=== PATIENT | male | born 1945 | race Caucasian/White ===

== ENCOUNTER → 2023-04-09 13:36 | Outpatient (CLI) | payer MEDICARE, OTHER, SELFPAY ==
--- NOTE | 2023-04-09 13:56 | DI.MRI.S_ITS ---
PROCEDURE: MR LUMBAR SPINE WO CON INDICATIONS: lower lumbar pain TECHNIQUE: Noncontrast sagittal T1 spin echo and T2 fast echo, sagittal STIR, and T2 fast spin echo through the lumbar spine. In cases with scoliosis, additional coronal T2 fast spin echo may be performed. COMPARISON: None. FINDINGS: Image quality: Excellent. Alignment and Curvature: There is normal bony alignment. Bone Marrow: Degenerative endplate changes noted. Spinal Cord: Conus terminates at the L1 level. Lipoma involving the proximal filum measuring 1.4 cm in length and 0.6 cm in diameter. Fatty infiltration of the remainder of the filum terminalis is noted as well. Paraspinous Soft Tissues: No paravertebral masses. T12-L1: Normal appearance. L1-L2: Mild disc space narrowing and circumferential disc bulge with hypertrophic facet joints present. Mild central stenosis. No foraminal stenosis L2-L3: Disc space narrowing with circumferential disc bulge and hypertrophic facet joints results in mild central stenosis. No foraminal stenosis L3-L4: Disc space narrowing and circumferential disc bulge with hypertrophic facet joints results in mhyv-ax-saabyeog central stenosis. Moderate bilateral foraminal stenosis L4-L5: Disc space narrowing, hypertrophic facet joints and ligamentum flavum laxity combined result in mild to moderate central stenosis. Moderate bilateral foraminal stenosis L5-S1: Normal appearance. IMPRESSION: Multilevel degenerative disc disease and arthropathy results in varying degrees of central and foraminal stenosis including mild to moderate central stenosis L3-4 and L4-5. 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 on 04/11/2023 at 11:54
== END ==
PROVIDERS: Referring Provider Physical Medicine & Rehabilitation; Visit Provider Physical Medicine & Rehabilitation
DX: M51.36 Other intervertebral disc degeneration, lumbar region (principal); M47.816 Spondylosis without myelopathy or radiculopathy, lumbar region; M48.061 Spinal stenosis, lumbar region without neurogenic claudication; D17.79 Benign lipomatous neoplasm of other sites; M54.50 Low back pain, unspecified
CPT/HCPCS: 72148

== ENCOUNTER 2024-01-08 12:33 | Emergency (ER) | payer MEDICARE, OTHER, SELFPAY ==
[2024-01-08] VITALS (7 sets, daily range): BP systolic 139–194; BP diastolic 72–101; PULSE 62–82; RESP 16–22; O2SAT 95–99; BMI 32.6
--- NOTE | 2024-01-08 12:40 | DI.CT.S_ITS ---
PROCEDURE: CT HEAD/BRAIN WO CON INDICATIONS: fall on thinners, + C spine tenderness TECHNIQUE: Noncontrast 4.5 mm thick angled axial sections acquired from the foramen magnum to the vertex, with coronal and sagittal reformats. For radiation dose reduction, the following was used: automated exposure control, adjustment of mA and/or kV according to patient size. COMPARISON: None. FINDINGS: Image quality: Diagnostic. CSF spaces: Basal cisterns are patent. No extra-axial fluid collections. Ventricles are normal in size and shape. Brain: No midline shift. No intracranial masses or hemorrhage. Cardenas-white matter interface is normal. Moderate cerebral and cerebellar volume loss with multifocal white matter chronic ischemic change noted. Atherosclerotic calcification noted associated with cavernous segments of both internal carotid arteries. Skull and face: Calvarium and visualized facial bones are intact, without suspicious lesions. Sinuses: Left frontal, bilateral ethmoid and maxillary as well as both sphenoid sinuses show complete opacification with osseous wall thickening IMPRESSION: Atrophy and chronic ischemic change without intracranial hemorrhage or mass effect. Chronic pansinusitis Approved by: Nam Brothers M.D. on 01/08/2024 at 12:54
--- NOTE | 2024-01-08 12:40 | DI.CT.S_ITS ---
PROCEDURE: CT CERVICAL SPINE WO CON INDICATIONS: fall on thinners, + C spine tenderness TECHNIQUE: Noncontrast 3 mm thick sections acquired from the skull base to the T4 level. Sagittal and coronal reformats were then constructed. For radiation dose reduction, the following was used: automated exposure control, adjustment of mA and/or kV according to patient size. COMPARISON: [facility] [place], CR, XR LUMBAR SPINE 2 OR 3 VIEWS, 04/04/2023, 13:32. [facility] [place], CR, XR PELVIS 1 OR 2 VIEWS, 11/25/2021, 10:20. [facility] [place], CR, XR PELVIS WITH LATERAL HIP RIGHT, 03/09/2023, 14:59. FINDINGS: Image quality: Excellent. Bones: No fractures or dislocations. Visualized superior ribs are intact. There is ossification of the posterior longitudinal ligament extending from C2 through C5-6 resulting in straightening of the normal cervical lordosis as well as moderate to severe central stenosis and indentation of the ventral cord at C3-4 and C4-5 Disc space narrowing and hypertrophic arthropathy C6-7 and C7-T1 Additionally, there is also a calcification of the anterior longitudinal ligament throughout the exam Soft tissues: Prevertebral soft tissues are normal in thickness. No paravertebral hematomas. No apical pneumothoraces. 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 Calcification of anterior longitudinal ligament noted throughout the cervical spine as as well may reflect an element of ankylosing spondylitis in the proper clinical setting Approved by: Nam Brothers M.D. on 01/08/2024 at 12:51
--- NOTE | 2024-01-08 12:57 | ED_ITS ---
HPI - Head Injury General Chief complaint: Trauma Stated complaint: Fall t-1, Hit Head, On Thinners, Neck Pain Time Seen by Provider: 01/08/24 12:47 Source: patient and family Mode of arrival: Ambulatory History of Present Illness HPI Narrative: 78-year-old male with history of chronic Eliquis anticoagulation, tripped over house cat in their bedroom last night, falling backwards striking head against the wall, apparently there was indentation to the wall, no loss of consciousness, no headache, no weakness to face arm or leg, no nausea or vomiting. Some posterior neck pain, worse this morning. Encouraged by son to come in for evaluation for possible imaging. He has chronic low back pain but there is no increase in his low back pain. No pain to upper extremities, lower extremities. Related Data Home Medications Medication Instructions Recorded Confirmed apixaban 5 mg tablet (Eliquis) 5 mg PO BID 01/08/24 01/08/24 diltiazem HCl 120 mg 120 mg PO DAILY 01/08/24 01/08/24 capsule,extended release 24 hr hydrochlorothiazide 25 mg tablet 25 mg PO DAILY 01/08/24 01/08/24 potassium chloride 20 mEq 20 meq PO DAILY 01/08/24 01/08/24 tablet,extended release(part/cryst) terbinafine HCl 250 mg tablet 250 mg PO DAILY 01/08/24 01/08/24 Previous Rx's Medication Instructions Recorded methocarbamol 500 mg tablet 500 mg PO TID 7 days #21 tabs 01/08/24 Allergies Allergy/AdvReac Type Severity Reaction Status Date / Time Iodinated Contrast Media Allergy Severe Anaphylaxis Verified 01/08/24 14:07 Review of Systems Review of Systems Narrative: see HPI Patient History Social History Smoking Status: Former smoker Smoking Status: Former smoker Substance Use Type: does not use Exam Narrative Exam Narrative: GENERAL: Well-developed patient, in mild distress. HEAD: Atraumatic. Normocephalic. EYES: Pupils equal round and reactive. Extraocular motions intact. No scleral icterus. No injection or drainage. ENT: Nose without bleeding, purulent drainage. Throat without erythema, tonsillar hypertrophy or exudate. Airway patent. NECK: Trachea midline. Non tender CARDIOVASCULAR: Regular rate and rhythm without murmurs, gallops, or rubs. RESPIRATORY: Clear to auscultation. Breath sounds equal bilaterally. No wheezes, rales, or rhonchi. GASTROINTESTINAL: Abdomen soft, non-tender, nondistended. EXTREMITIES: No edema or joint tenderness. BACK: Nontender without deformity or crepitance. No flank tenderness. NEURO: AOx3. SKIN: No rash or erythema of visible areas Initial Vital Signs Initial Vital Signs: Vital Signs Pulse Rate 78 01/08/24 12:40 Pulse Oximetry 98 01/08/24 12:40 Course Orders Ordered: ED Orders 01/08/24 12:40 CT cervical spine wo con Stat CT head/brain wo con Stat Discontinued Medications Acetaminophen (Acetaminophen 325 Mg Tablet) 975 mg PO NOW ONE Stop: 01/08/24 14:08 Last Admin: 01/08/24 14:21 Dose: 975 mg Documented By: GLENYS Methocarbamol (Methocarbamol 500 Mg Tablet) 500 mg PO NOW ONE Stop: 01/08/24 14:08 Last Admin: 01/08/24 14:22 Dose: 500 mg Documented By: GLENYS Vital Signs Vital signs: Vital Signs - 8 hr 01/08/24 12:40 01/08/24 12:41 01/08/24 12:43 Pulse Rate 78 82 72 Respiratory Rate 18 Blood Pressure 150/101 H Pulse Oximetry 98 99 97 Oxygen Delivery Method Room Air 01/08/24 12:43 01/08/24 13:00 01/08/24 13:00 Pulse Rate 71 Respiratory Rate 22 Blood Pressure 150/101 H 194/91 H Pulse Oximetry 98 Oxygen Delivery Method 01/08/24 13:30 01/08/24 13:31 01/08/24 13:31 Pulse Rate 62 71 Respiratory Rate 16 19 Blood Pressure 139/72 Pulse Oximetry 96 96 Oxygen Delivery Method 01/08/24 14:00 01/08/24 14:00 Pulse Rate 66 Respiratory Rate 16 Blood Pressure 143/73 H Pulse Oximetry 95 Oxygen Delivery Method Room Air MDM - Head Injury Imaging Data CT scan - head: Radiologist's Impression: [address] [address] [address] Scan Report Signed Patient: Sarmad Alejo MR#: [id number] : 1945 Acct:[id number] Age/Sex: 78 / M Date of Service: 01/08/24 Loc: ED Accession Number: [id number] Procedure: CT head/brain wo con Ordering Provider: Brad Norman MD PROCEDURE: CT HEAD/BRAIN WO CON INDICATIONS: fall on thinners, + C spine tenderness TECHNIQUE: Noncontrast 4.5 mm thick angled axial sections acquired from the foramen magnum to the vertex, with coronal and sagittal reformats. For radiation dose reduction, the following was used: automated exposure control, adjustment of mA and/or kV according to patient size. COMPARISON: None. FINDINGS: Image quality: Diagnostic. CSF spaces: Basal cisterns are patent. No extra-axial fluid collections. Ventricles are normal in size and shape. Brain: No midline shift. No intracranial masses or hemorrhage. Cardenas-white matter interface is normal. Moderate cerebral and cerebellar volume loss with multifocal white matter chronic ischemic change noted. Atherosclerotic calcification noted associated with cavernous segments of both internal carotid arteries. Skull and face: Calvarium and visualized facial bones are intact, without suspicious lesions. Sinuses: Left frontal, bilateral ethmoid and maxillary as well as both sphenoid sinuses show complete opacification with osseous wall thickening IMPRESSION: Atrophy and chronic ischemic change without intracranial hemorrhage or mass effect. Chronic pansinusitis Approved by: Nam Brothers M.D. on 01/08/2024 at 12:54 CT - cervical spine: Radiologist's Impression: [place] [address] CT Scan Report Signed Patient: Sarmad Alejo MR#: [id number] : 1945 Acct:[id number] Age/Sex: 78 / M Date of Service: 01/08/24 Loc: ED Accession Number: [id number] Procedure: CT cervical spine wo con Ordering Provider: Brad Norman MD PROCEDURE: CT CERVICAL SPINE WO CON INDICATIONS: fall on thinners, + C spine tenderness TECHNIQUE: Noncontrast 3 mm thick sections acquired from the skull base to the T4 level. Sagittal and coronal reformats were then constructed. For radiation dose reduction, the following was used: automated exposure control, adjustment of mA and/or kV according to patient size. COMPARISON: [facility] [place], CR, XR LUMBAR SPINE 2 OR 3 VIEWS, 04/04/2023, 13:32. [facility] [place], CR, XR PELVIS 1 OR 2 VIEWS, 11/25/2021, 10:20. [facility] [place], CR, XR PELVIS WITH LATERAL HIP RIGHT, 03/09/2023, 14:59. FINDINGS: Image quality: Excellent. Bones: No fractures or dislocations. Visualized superior ribs are intact. There is ossification of the posterior longitudinal ligament extending from C2 through C5-6 resulting in straightening of the normal cervical lordosis as well as moderate to severe central stenosis and indentation of the ventral cord at C3-4 and C4-5 Disc space narrowing and hypertrophic arthropathy C6-7 and C7-T1 Additionally, there is also a calcification of the anterior longitudinal ligament throughout the exam Soft tissues: Prevertebral soft tissues are normal in thickness. No paravertebral hematomas. No apical pneumothoraces. 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 Calcification of anterior longitudinal ligament noted throughout the cervical spine as as well may reflect an element of ankylosing spondylitis in the proper clinical setting Approved by: Nam Brothers M.D. on 01/08/2024 at 12:51 MDM Narrative Medical decision making narrative: 78-year-old male with ground level fall, on Eliquis chronic anticoagulation, denies headache but here for imaging per urging of family members, also has posterior neck pain. Placed in C-collar at triage. CT head and CT cervical sp ine imaging had been requested. Pain medications offered, he declined for now. CT head without obvious brain injury, ED wet read. Await radiologist over-read. Copy of report given to patient CT head no acute injuries, see radiology report. CT cervical spine no acute injuries, but moderate to severe central canal stenosis C3-4 and C4-5 noted. See radiology report. Copy of report given to patient Continue chronic anticoagulation, trial of oral Tylenol as needed for discomfort control, trial of Robaxin muscle relaxant to use if needed, 1st dose now, further doses sent to pharmacy. Home with . Recheck advised next couple of days. Cervical spin out stenosis findings noted, no upper or lower extremity weakness or numbness symptoms present, no physical exam findings for central co rd syndrome at this time. Discharge Plan Departure Patient Disposition: Home Clinical Impression: Fall from ground level, Neck strain Activity Restrictions/Additional Instructions: History of chronic anticoagulation. Fall last night striking back of head, with no loss of consciousness. No weakness or numbness face arms or legs. Also some posterior neck pain. CT head imaging showed no acute changes. CT cervical spine showed no acute changes but did show multilevel spinal canal narrowing, that could place you at increased risk of future spinal cord injury with falls, further follow up as needed as an outpatient. Avoid Motrin while on Eliquis, to avoid risks of bleeding in the stomach. Take Tylenol as needed for pain control. Consider use of muscle relaxant Robaxin to help with muscle spasm in the back of the neck from your fall. Recheck symptoms with your regular doctor in the next couple of days. Return to this/nearest emergency department for any change worsening symptoms or any concerns prior Prescriptions: New methocarbamol 500 mg tablet 500 mg PO TID 7 Days Qty: 21 0RF No Action terbinafine HCl 250 mg tablet 250 mg PO DAILY potassium chloride 20 mEq tablet,ER particles/crystals 20 meq PO DAILY diltiazem HCl 120 mg capsule,extended release 24hr 120 mg PO DAILY hydrochlorothiazide 25 mg tablet 25 mg PO DAILY Eliquis 5 mg tablet 5 mg PO BID Stand Alone Forms: Patient Portal/API
[2024-01-08] MEDS: ACETAMINOPHEN 325 MG TABLET 975 MG PO (14:21)
[2024-01-08] MEDS: methocarbamoL 500 MG TABLET PO (14:22)
== END 2024-01-08 14:34 | disposition home or self-care (01) ==
PROVIDERS: Emergency Provider Emergency Medicine
DX: S16.1XXA Strain of muscle, fascia and tendon at neck level, initial encounter (principal); W18.30XA Fall on same level, unspecified, initial encounter; Z79.01 Long term (current) use of anticoagulants
CPT/HCPCS: 70450; 72125; 99284

== ENCOUNTER 2025-04-12 16:09 | Emergency (ER) | payer MEDICARE, OTHER, SELFPAY ==
[2025-04-12] VITALS (22 sets, daily range): BP systolic 109–186; BP diastolic 55–102; PULSE 42–64; RESP 12–21; TEMP 36.8; O2SAT 94–100; BMI 32.2
--- NOTE | 2025-04-12 16:41 | DI.RAD.S_ITS ---
PROCEDURE: XR SHOULDER RT MIN 2V INDICATIONS: trauma TECHNIQUE: 3 views of the shoulder were acquired. COMPARISON: None. FINDINGS: Bones: No acute fractures or dislocations. No suspicious bony lesions. Visualized ribs appear intact. Degenerative changes of the acromioclavicular and glenohumeral joints. Soft tissues: No suspicious soft tissue calcifications. IMPRESSION: Right shoulder without acute fracture or dislocation. Degenerative changes of the right acromioclavicular and glenohumeral joints. If there are persistent symptoms or clinical suspicion for pathology, then repeat radiographs or advanced imaging (CT or MRI) may be considered for further evaluation. Dictated by: Jeferson Celeste M.D. on 04/12/2025 at 17:18 Approved by: Jeferson Celeste M.D. on 04/12/2025 at 17:18
--- NOTE | 2025-04-12 16:41 | DI.RAD.S_ITS ---
PROCEDURE: XR SHOULDER LT MIN 2V INDICATIONS: trauma TECHNIQUE: 3 views of the shoulder were acquired. COMPARISON: None. FINDINGS: Bones: No fractures or dislocations. No suspicious bony lesions. Visualized ribs appear intact. Degenerative changes of the acromioclavicular and glenohumeral joints. Coracoclavicular and acromioclavicular intervals are maintained. Soft tissues: No suspicious soft tissue calcifications. IMPRESSION: Left shoulder without acute osseous abnormalities. Degenerative changes of the left shoulder. If there are persistent symptoms or clinical suspicion for pathology, then repeat radiographs or advanced imaging (CT or MRI) may be considered for further evaluation. Dictated by: Jeferson Celeste M.D. on 04/12/2025 at 17:19 Approved by: Jeferson Celeste M.D. on 04/12/2025 at 17:19
--- NOTE | 2025-04-12 16:42 | DI.RAD.S_ITS ---
PROCEDURE: XR CHEST 1V INDICATIONS: trauma TECHNIQUE: One view of the chest was acquired. COMPARISON: None. FINDINGS: Surgical changes and devices: None. Lungs and pleura: Minimal diffuse interstitial prominence. No dense consolidation. No pleural effusions or pneumothorax. Mediastinum: Mediastinal contours appear normal. Heart size is normal. Bones and chest wall: No suspicious bony lesions. Overlying soft tissues appear unremarkable. IMPRESSION: Mild diffuse interstitial prominence which may represent infectious/inflammatory process although early pulmonary edema not excluded. Otherwise, no acute cardiopulmonary abnormality seen. Dictated by: Jeferson Celeste M.D. on 04/12/2025 at 17:20 Approved by: Jeferson Celeste M.D. on 04/12/2025 at 17:21
--- NOTE | 2025-04-12 16:42 | DI.RAD.S_ITS ---
PROCEDURE: XR PELVIS 1-2V INDICATIONS: trauma TECHNIQUE: 1 view(s) of the pelvis acquired. COMPARISON: None. FINDINGS: Bones: No definite acute fractures or dislocations. Moderate degenerative changes of the bilateral hips, more pronounced on the right. Lower lumbar spondylosis. No suspicious bony lesions. Soft tissues: Visualized bowel gas pattern is normal. No suspicious soft tissue calcifications. IMPRESSION: Pelvis without acute fracture or dislocation. Right greater than left moderate degenerative changes of the bilateral hips. If there is high clinical suspicion for occult fracture given adequate mechanism of injury, further evaluation with CT can be considered. Dictated by: Jeferson Celeste M.D. on 04/12/2025 at 18:51 Approved by: Jeferson Celeste M.D. on 04/12/2025 at 18:52
--- NOTE | 2025-04-12 16:43 | DI.CT.S_ITS ---
PROCEDURE: CT HEAD/BRAIN WO CON INDICATIONS: Trauma TECHNIQUE: Noncontrast 4.5 mm thick angled axial sections acquired from the foramen magnum to the vertex, with coronal and sagittal reformats. For radiation dose reduction, the following was used: automated exposure control, adjustment of mA and/or kV according to patient size. COMPARISON: [facility], CT, CT HEAD/BRAIN WO CON, 01/08/2024, 12:43. FINDINGS: Image quality: Diagnostic. CSF spaces: Basal cisterns are patent. No extra-axial fluid collections. The ventricles are symmetric in size and shape. Brain: No intracranial bleeds or mass effect. There is cerebral volume loss, with resultant ventricular and sulcal prominence. There are periventricular and deep white matter chronic small vessel ischemic changes. There is intracranial internal carotid artery atherosclerosis. Skull and face: Calvarium and visualized facial bones appear intact, without suspicious lesions. Sinuses: Redemonstration of moderate opacification of the left frontal, scattered ethmoid, sphenoid, and bilateral maxillary sinuses. Mastoid air cells are clear. IMPRESSION: 1. CT head without acute intracranial abnormalities or acute calvarial fractures. 2. Age-related senescent changes and sequela of chronic small vessel ischemic disease. 3. Pansinusitis. Dictated by: Jeferson Celeste M.D. on 04/12/2025 at 17:45 Approved by: Jeferson Celeste M.D. on 04/12/2025 at 17:48
--- NOTE | 2025-04-12 16:43 | DI.CT.S_ITS ---
PROCEDURE: CT CERVICAL SPINE WO CON INDICATIONS: Trauma TECHNIQUE: Noncontrast 3 mm thick sections acquired from the skull base to the T4 level. Sagittal and coronal reformats were then constructed. For radiation dose reduction, the following was used: automated exposure control, adjustment of mA and/or kV according to patient size. COMPARISON: [facility], CT, CT CERVICAL SPINE WO CON, 01/08/2024, 12:43. FINDINGS: Image quality: Diagnostic Bones: No acute fractures or dislocations. No acute compression fractures of the vertebral bodies. Craniocervical junction is intact. C1-C2 relationship is preserved. Visualized superior ribs are intact. Moderate multilevel cervical spondylosis. Redemonstration of calcified posterior longitudinal ligament extending from C2 through C6. Associated straightening of normal cervical lordosis. There is possible fracture of the calcified posterior longitudinal ligament at C3-4 with mild asymmetric widening of the anterior longitudinal ligament, also calcified at C3-4. Mild overlying soft tissue swelling of the prevertebral soft tissues at this level. No significant change in appearance of moderate-severe central canal stenosis of C3 through C5-6. Soft tissues: Prevertebral soft tissues are normal in thickness. No paravertebral hematomas. No apical pneumothoraces. IMPRESSION: CT cervical spine with no acute compression fractures or traumatic malalignment of the cervical spine. However, calcified anterior and posterior longitudinal ligaments demonstrate possible age-indeterminate discontinuity at the level of C3-4, more pronounced than previous exam. Mild anterior prevertebral soft tissue prominence at this level. Otherwise, no significant change in appearance of moderate-severe spinal canal stenosis extending from C3 through C5-6. If there are focal neurological symptoms, consider further evaluation with MRI. Stable appearance of moderate multilevel cervical spondylosis. Findings were discussed with Dr. Torres at 1757 hrs. Dictated by: Jeferson Celeste M.D. on 04/12/2025 at 17:48 Approved by: Jeferson Celeste M.D. on 04/12/2025 at 18:02
--- NOTE | 2025-04-12 16:45 | DI.RAD.S_ITS ---
PROCEDURE: XR KNEE RT 3V INDICATIONS: trauma TECHNIQUE: 3 views of the knee were acquired. COMPARISON: None. FINDINGS: Bones: No fractures or dislocations. No suspicious bony lesions. Moderate joint space narrowing and osteophytosis of the patellofemoral compartment, mild in the medial and lateral compartment. Patella enthesophytes. Soft tissues: No joint effusion. No suspicious soft tissue calcifications. Vascular calcifications. IMPRESSION: No acute bony abnormality or significant effusion. 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 If symptoms persist with conservative management, consider cross-sectional imaging such as CT or MRI. Approved by: Maria Guadalupe Ortiz M.D.,Ph.D. on 04/12/2025 at 21:03
--- NOTE | 2025-04-12 16:45 | DI.RAD.S_ITS ---
PROCEDURE: XR KNEE LT 3V INDICATIONS: trauma TECHNIQUE: 3 views of the knee were acquired. COMPARISON: None. FINDINGS: Bones: Status post total knee arthroplasty with prosthetic elements in appropriate position. No evidence of hardware complication. Ossific densities at the lateral aspect of the joint space favored to represent sequela of surgery versus prior trauma, less likely acute fractures. No suspicious bony lesions. Patellar enthesophytes. Soft tissues: Small joint effusion. No suspicious soft tissue calcifications. Vascular calcifications. IMPRESSION: Status post total knee arthroplasty without evidence of hardware complication. No definite acute fracture identified. If symptoms persist with conservative management, consider cross-sectional imaging such as CT or MRI. Approved by: Maria Guadalupe Ortiz M.D.,Ph.D. on 04/12/2025 at 20:35
--- NOTE | 2025-04-12 17:40 | EKG_ITS ---
[address] [address] Test Date: 2025-04-12 Pat Name: Sarmad Alejo Department: [facility] Room: Gender: Male Court Reporter: PATTIE : 1945 Requested By: Order Number: [id number] Reading MD: Carloz John MD Measurements Intervals [place] Rate: 49 P: IA: QRS: 45 QRSD: 96 T: 40 QT: 518 QTc: 467 Interpretive Statements Atrial fibrillation with slow ventricular response NO PRIOR TRACING Electronically Signed On 04-13-2025 9:28:21 PST by Carloz John MD
[2025-04-12 17:49] LABS: Add Manual Diff / Slide Review NO; Hematocrit 43.8 % (41-53); Hemoglobin 14.9 g/dL (13.5-17.5); Lymphocytes Absolute Auto 1400 /uL (1100-4500); Mean Corpuscular HGB Conc 34.0 % (30-36); Mean Corpuscular Hemoglobin 31.4 PG (26-34); Mean Corpuscular Volume 92.2 fL (80-100); Platelet Count 221 X10^3/uL (150-400)
[2025-04-12 17:58] LABS: INR 1.7 (0.9-1.3); Prothrombin Time 18.9 SECONDS (9.4-12.5)
[2025-04-12 18:01] LABS: PTT Partial Thromboplastin Tim 40 SECONDS (25.1-36.5)
[2025-04-12 18:02] LABS: Lactate (Lactic Acid) 2.0 mmol/L (0.7-2.1)
[2025-04-12 18:03] LABS: Alanine Aminotransferase 21 IU/L (<50); Albumin 4.4 g/dL (3.5-5.0); Albumin Globulin Ratio 1.1 (1.0-2.8); Alkaline Phosphatase 103 U/L (38-126); Blood Urea Nitrogen 16 mg/dL (9-20); Calcium 9.1 mg/dL (8.4-10.2); Carbon Dioxide 27 mmol/L (22-32); Chloride 99 mmol/L (98-107); Estimated Glomerular Filt Rate > 60 mL/min (>60); Globulin 4.1 g/dL (1.7-4.1); Glucose 121 mg/dL (70-99); HEMOLYSIS 22 (0-50); Lipase 40 U/L (23-300); Potassium 4.0 mmol/L (3.4-5.1); Sodium 135 mmol/L (137-145); Total Protein 8.5 g/dL (6.3-8.2)
[2025-04-12] MEDS: ONDANSETRON 4 MG/2 ML INJ IV (19:20)
--- NOTE | 2025-04-12 19:35 | PC.NURSE ---
Discussed c-spine results with Dr. Torres. Pt's c-spine is not cleared at this time and soft collar not to be removed.
--- NOTE | 2025-04-12 19:37 | PC.NURSE ---
Hand off report received from Katalina Esquivel RN
--- NOTE | 2025-04-12 19:51 | ED.GENADULT ---
HPI - General Adult General Chief complaint: Trauma Stated complaint: GLF Time Seen by Provider: 04/12/25 16:18 Source: patient and EMS Mode of arrival: EMS History of Present Illness HPI narrative: 79-year-old gentleman with a history of chronic atrial fibrillation, anticoagulated on apixaban rate controlled with diltiazem, tripped going into the house today fell forward with significant impact on his chin and forehead others contusions on his knees he states that he was holding something and was not able to break his fall. He is complaining of severe pain into both upper extremities with weakness into both upper extremities. He is not complaining of any abdominal pain pelvic pain leg pain nor leg weakness or paresthesia. He has a hoarse collar in place. Standby trauma is called. GCS of 15 Related Data Home Medications ?Medication ?Instructions ?Recorded ?Confirmed apixaban 5 mg tablet (Eliquis) 5 mg PO BID 01/08/24 01/08/24 diltiazem HCl 120 mg 120 mg PO DAILY 01/08/24 01/08/24 capsule,extended release 24 hr hydrochlorothiazide 25 mg tablet 25 mg PO DAILY 01/08/24 01/08/24 potassium chloride 20 mEq 20 meq PO DAILY 01/08/24 01/08/24 tablet,extended release(part/cryst) terbinafine HCl 250 mg tablet 250 mg PO DAILY 01/08/24 01/08/24 Allergies Allergy/AdvReac Type Severity Reaction Status Date / Time Iodinated Contrast Media Allergy Severe Anaphylaxis Verified 04/12/25 16:19 Review of Systems Review of Systems Narrative: Pertinent positive and negative findings as per HPI Patient History Medical History (Updated 04/12/25 @ 21:12 by Sara Torres MD) AF (paroxysmal atrial fibrillation) Smoking Status: Former smoker Exam Initial Vital Signs Initial Vital Signs: Vital Signs Pulse Rate 56 L 04/12/25 16:14 Pulse Oximetry 98 04/12/25 16:14 General: Healthy appearing, in no acute distress. Able to give a complete and coherent history. Well-nourished well-developed HEENT: Moist mucous membranes, normal sclera with reactive pupils, minor abrasion on the chin in the forehead. Neck: Midline tenderness C2-3 4. Shoulders: Significant trapezius muscle spasm tenderness, exquisite pain even touching the skin over his shoulders. No obvious effusions, abrasions or contusions. He does not have tenderness over the clavicles. He is able to flex and extend both arms but complains of a tingling sensation down the back of both arms. No obvious weakness in the upper extremities Respiratory: Lungs are clear to auscultation, no wheezing no rales no rhonchi. Full and symmetrical air movement. No thoracic tenderness with compression Cardiac: Regular rate and rhythm no murmurs no bruits Abdomen: Soft, nontender, no rebound or guarding, no flank pain, no pelvic ring pain with compression Spine: No tenderness down the thoracic spine or into the lumbar spine or sacrum Skin: Minor abrasions over his knees Neurologic: He is able to move legs without obvious weakness. He does not complain of any paresthesias in the lower extremities Psych: Cooperative, appropriate insight and affect Course Orders Ordered: ED Orders 04/12/25 16:41 XR shoulder LT 2+ views Stat XR shoulder RT 2+ views Stat 04/12/25 16:42 XR chest 1V Stat XR pelvis 1-2V Stat EKG-12 Lead Stat 04/12/25 16:43 CT cervical spine wo con Stat CT head/brain wo con Stat 04/12/25 16:45 XR knee LT 3V Stat XR knee RT 3V Stat 04/12/25 17:25 Complete Blood Count AUTO DIFF Stat Comprehensive Metabolic Panel Stat Lactate (Lactic Acid) Stat Lipase Stat PTT Partial Thromboplastin Gutierrez Stat Prothrombin Time INR Stat Type and Screen Stat Discontinued Medications Hydromorphone HCl (Hydromorphone Hcl 0.5 Mg/0.5 Ml Syringe) 0.5 mg IV NOW ONE Stop: 04/12/25 16:26 Last Admin: 04/12/25 16:28 Dose: 0.5 mg Documented By: RB Hydromorphone HCl (Hydromorphone 1 Mg/Ml Syringe) 0.5 mg IV NOW ONE Stop: 04/12/25 16:42 Last Admin: 04/12/25 19:21 Dose: 0.5 mg Documented By: RB Ondansetron HCl (Ondansetron 4 Mg/2 Ml Inj) 4 mg IV NOW ONE Stop: 04/12/25 16:42 Last Admin: 04/12/25 19:20 Dose: 4 mg Documented By: RB Vital Signs Vital signs: Vital Signs - 8 hr 04/12/25 16:14 04/12/25 16:17 04/12/25 16:17 Temperature Pulse Rate 56 L 55 L Respiratory Rate Blood Pressure 137/68 Pulse Oximetry 98 100 Oxygen Delivery Method 04/12/25 16:19 04/12/25 16:31 04/12/25 16:32 Temperature 98.2 F Pulse Rate 63 50 L Respiratory Rate 18 Blood Pressure 139/65 Pulse Oximetry 97 98 99 Oxygen Delivery Method Room Air 04/12/25 16:32 04/12/25 17:14 04/12/25 17:30 Temperature Pulse Rate 42 L 44 L Respiratory Rate Blood Pressure 139/65 Pulse Oximetry 98 98 Oxygen Delivery Method 04/12/25 17:45 04/12/25 17:45 04/12/25 18:00 Temperature Pulse Rate 43 L 45 L Respiratory Rate 12 19 Blood Pressure 109/55 L Pulse Oximetry 98 98 Oxygen Delivery Method 04/12/25 18:00 04/12/25 18:30 04/12/25 18:30 Temperature Pulse Rate 52 L Respiratory Rate 18 Blood Pressure 112/56 L 130/61 Pulse Oximetry 97 Oxygen Delivery Method 04/12/25 19:00 04/12/25 19:01 04/12/25 19:01 Temperature Pulse Rate 52 L 54 L Respiratory Rate 18 17 Blood Pressure 140/64 Pulse Oximetry 96 97 Oxygen Delivery Method 04/12/25 19:30 04/12/25 19:31 04/12/25 19:31 Temperature Pulse Rate 55 L 55 L Respiratory Rate 16 15 Blood Pressure 128/64 Pulse Oximetry 94 95 Oxygen Delivery Method Medical Decision Making Lab Data 04/12/25 17:25 04/12/25 17:25 Labs: Lab Results 04/12/25 Range/Units 17:25 WBC 10.8 (4.5-11.0) X10^3/uL RBC 4.75 (4.5-5.9) X10^6/uL Hgb 14.9 (13.5-17.5) g/dL Hct 43.8 (41-53) % MCV 92.2 (80-100) fL MCH 31.4 (26-34) PG MCHC 34.0 (30-36) % RDW 14.5 (11.6-14.8) % Plt Count 221 (150-400) X10^3/uL Neut % (Auto) 77.8 H (50-75) % Lymph % (Auto) 13.0 L (25-40) % [place] % (Auto) 7.0 (3-14) % Eos % (Auto) 1.9 L (2-4) % Baso % (Auto) 0.3 (0-2) % Neut # (Auto) 8400 H (0969-8343) /uL Lymph # (Auto) 1400 (9554-1722) /uL [place] # (Auto) 800 (0-900) /uL Eos # (Auto) 200 (0-450) /uL Baso # (Auto) 0 (0-100) /uL PT 18.9 H (9.4-12.5) SECONDS INR 1.7 H (0.9-1.3) APTT 40 H (25.1-36.5) SECONDS Sodium 135 L (137-145) mmol/L Potassium 4.0 (3.4-5.1) mmol/L Chloride 99 (98-107) mmol/L Carbon Dioxide 27 (22-32) mmol/L BUN 16 (9-20) mg/dL Creatinine 0.92 (0.66-1.25) mg/dL Estimated GFR > 60 (>60) mL/min BUN/Creatinine Ratio 17.4 (6-22) Glucose 121 H (70-99) mg/dL Lactate 2.0 (0.7-2.1) mmol/L Calcium 9.1 (8.4-10.2) mg/dL Total Bilirubin 0.6 (0.2-1.3) mg/dL AST 29 (17-59) IU/L ALT 21 (<50) IU/L Alkaline Phosphatase 103 (38-126) U/L Total Protein 8.5 H (6.3-8.2) g/dL Albumin 4.4 (3.5-5.0) g/dL Globulin 4.1 (1.7-4.1) g/dL Albumin/Globulin Ratio 1.1 (1.0-2.8) Lipase 40 (23-300) U/L Blood Type O Positive Antibody Screen Negative Point of Care Testing Glucose POC 118 Point of care testing: Point of Care Testing Glucose POC 118 Imaging Data Cervical spine: Radiologist's Impression: PROCEDURE: CT CERVICAL SPINE WO CON INDICATIONS: Trauma TECHNIQUE: Noncontrast 3 mm thick sections acquired from the skull base to the T4 level. Sagittal and coronal reformats were then constructed. For radiation dose reduction, the following was used: automated exposure control, adjustment of mA and/or kV according to patient size. COMPARISON: [facility], CT, CT CERVICAL SPINE WO CON, 01/08/2024, 12:43. FINDINGS: Image quality: Diagnostic Bones: No acute fractures or dislocations. No acute compression fractures of the vertebral bodies. Craniocervical junction is intact. C1-C2 relationship is preserved. Visualized superior ribs are intact. Moderate multilevel cervical spondylosis. Redemonstration of calcified posterior longitudinal ligament extending from C2 through C6. Associated straightening of normal cervical lordosis. There is possible fracture of the calcified posterior longitudinal ligament at C3-4 with mild asymmetric widening of the anterior longitudinal ligament, also calcified at C3-4. Mild overlying soft tissue swelling of the prevertebral soft tissues at this level. No significant change in appearance of moderate-severe central canal stenosis of C3 through C5-6. Soft tissues: Prevertebral soft tissues are normal in thickness. No paravertebral hematomas. No apical pneumothoraces. IMPRESSION: CT cervical spine with no acute compression fractures or traumatic malalignment of the cervical spine. However, calcified anterior and posterior longitudinal ligaments demonstrate possible age-indeterminate discontinuity at the level of C3-4, more pronounced than previous exam. Mild anterior prevertebral soft tissue prominence at this level. Otherwise, no significant change in appearance of moderate-severe spinal canal stenosis extending from C3 through C5-6. If there are focal neurological symptoms, consider further evaluation with MRI. Stable appearance of moderate multilevel cervical spondylosis. Findings were discussed with Dr. Torres at 1757 hrs. Dictated by: Jeferson Celeste M.D. on 04/12/2025 at 17:48 CT scan - head: Radiologist's Impression: PROCEDURE: CT HEAD/BRAIN WO CON INDICATIONS: Trauma TECHNIQUE: Noncontrast 4.5 mm thick angled axial sections acquired from the foramen magnum to the vertex, with coronal and sagittal reformats. For radiation dose reduction, the following was used: automated exposure control, adjustment of mA and/or kV according to patient size. COMPARISON: [facility], CT, CT HEAD/BRAIN WO CON, 01/08/2024, 12:43. FINDINGS: Image quality: Diagnostic. CSF spaces: Basal cisterns are patent. No extra-axial fluid collections. The ventricles are symmetric in size and shape. Brain: No intracranial bleeds or mass effect. There is cerebral volume loss, with resultant ventricular and sulcal prominence. There are periventricular and deep white matter chronic small vessel ischemic changes. There is intracranial internal carotid artery atherosclerosis. Skull and face: Calvarium and visualized facial bones appear intact, without suspicious lesions. Sinuses: Redemonstration of moderate opacification of the left frontal, scattered ethmoid, sphenoid, and bilateral maxillary sinuses. Mastoid air cells are clear. IMPRESSION: 1. CT head without acute intracranial abnormalities or acute calvarial fractures. 2. Age-related senescent changes and sequela of chronic small vessel ischemic disease. 3. Pansinusitis. Dictated by: Jeferson Celeste M.D. on 04/12/2025 at 17:45 Chest x-ray: Radiologist's Impression: PROCEDURE: XR CHEST 1V INDICATIONS: trauma TECHNIQUE: One view of the chest was acquired. COMPARISON: None. FINDINGS: Surgical changes and devices: None. Lungs and pleura: Minimal diffuse interstitial prominence. No dense consolidation. No pleural effusions or pneumothorax. Mediastinum: Mediastinal contours appear normal. Heart size is normal. Bones and chest wall: No suspicious bony lesions. Overlying soft tissues appear unremarkable. IMPRESSION: Mild diffuse interstitial prominence which may represent infectious/inflammatory process although early pulmonary edema not excluded. Otherwise, no acute cardiopulmonary abnormality seen. Dictated by: Jeferson Celeste M.D. on 04/12/2025 at 17:20 pelvis xr : Radiologist's Impression: PROCEDURE: XR PELVIS 1-2V INDICATIONS: trauma TECHNIQUE: 1 view(s) of the pelvis acquired. COMPARISON: None. FINDINGS: Bones: No definite acute fractures or dislocations. Moderate degenerative changes of the bilateral hips, more pronounced on the right. Lower lumbar spondylosis. No suspicious bony lesions. Soft tissues: Visualized bowel gas pattern is normal. No suspicious soft tissue calcifications. IMPRESSION: Pelvis without acute fracture or dislocation. Right greater than left moderate degenerative changes of the bilateral hips. If there is high clinical suspicion for occult fracture given adequate mechanism of injury, further evaluation with CT can be considered. Dictated by: Jeferson Celeste M.D. on 04/12/2025 at 18:51 MDM Narrative Medical decision making narrative: CC: Fall with upper cervical spine pain Complicating co-morbidities: Chronic atrial fibrillation, anticoagulated Data collected from: patient, medics Differential considered: Cervical spine injury, intracranial bleed, upper extremity AV fractures, Exam documented above, pertinent findings include: Complaining of significant pain with any movement of his head. Hoarse collar is left in place. Tenderness with touching the skin over the trapezius muscles and upper shoulders without obvious pain into shoulder joint manipulation or humerus. Upper extremities do have full range of motion of the elbows, assignment manager is slightly diminished however I believe this is more secondary to pain than true weakness. Lower extremities do not have any paresthesias or weakness associated Lab Test results independently reviewed as above. Pertinent findings: CBC is unremarkable Chemistries showed no significant abnormality Imaging studies independently reviewed: CT scan of the head does not show intracranial hemorrhage X-ray of the chest and pelvis are unremarkable Radiology called concerned with cervical spine images Bilateral knee x-rays do not show pathology from the fall Treatments: IV pain medication. horse collar/blanket left in place Re-evaluations: 8pm transfer center Discussed with spine surgeon, agreed the ED to ED transfer for further evaluation would be appropriate Discussion: 79-year-old gentleman with ground level fall landing on his face upper cervical spine tenderness, anticoagulated. CT scan of the cervical spine is not read as completely normal, question of calcified anterior ligamentous disruption. Patient has significant pain with any movement of his neck and into the upper chest trapezius muscles and over the shoulders with no significant joint pain and no obvious upper extremity fractures. I am concerned for acute cervical spine injury and have contacted [facility] to review care. Concerns include DISH as well as central cord syndrome. Patient will remain in spine immobilization while he is transferred down to [facility] Emergency Department. Concerns and reasons for transfer discussed with the patient in his . Pain has been addressed, and he is safe to transfer to [facility] for further assessment Discharge Plan Departure Patient Disposition: [facility] Clinical Impression: Abrasion of knee, bilateral Fall Qualifiers: Encounter type: initial encounter Qualified Code(s): W19.XXXA - Unspecified fall, initial encounter Injury of cervical spine Qualifiers: Encounter type: initial encounter Qualified Code(s): S14.109A - Unspecified injury at unspecified level of cervical spinal cord, initial encounter Prescriptions: No Action terbinafine HCl 250 mg tablet 250 mg PO DAILY potassium chloride 20 mEq tablet,ER particles/crystals 20 meq PO DAILY diltiazem HCl 120 mg capsule,extended release 24hr 120 mg PO DAILY hydrochlorothiazide 25 mg tablet 25 mg PO DAILY Eliquis 5 mg tablet 5 mg PO BID
== END 2025-04-12 22:05 | disposition short-term general hospital (02) ==
PROVIDERS: Emergency Provider Emergency Medicine
DX: S14.109A Unspecified injury at unspecified level of cervical spinal cord, initial encounter (principal); S80.211A Abrasion, right knee, initial encounter; S80.212A Abrasion, left knee, initial encounter; Z79.01 Long term (current) use of anticoagulants; W01.0XXA Fall on same level from slipping, tripping and stumbling without subsequent striking against object, initial encounter; R40.2412 Glasgow coma scale score 13-15, at arrival to emergency department
CPT/HCPCS: 70450; 71045; 72125; 72170; 73030; 73562; 80053; 83605; 83690; 85025; 85610; 85730; 86850; 86900; 86901; 93005; 93010; 96374; 96375; 96376; 99284; 99285; J1171; J2405

== ENCOUNTER 2025-05-15 16:04 | Emergency (ER) | payer OTHER, MEDICARE, SELFPAY ==
[2025-05-15] VITALS (7 sets, daily range): BP systolic 121–180; BP diastolic 74–83; PULSE 78–97; RESP 15–20; TEMP 36.2; O2SAT 97–100; BMI 30.4
[2025-05-15 16:32] LABS: Appearance Urine UA SL CLOUDY; Bilirubin Urine UA NEGATIVE (NEGATIVE); Color Urine UA BROWN; Glucose Urine UA 3+ g/dL (Negative); Ketones Urine UA 1+ (NEGATIVE); Leukocyte Esterase Urine UA TRACE (NEGATIVE); Nitrite Urine UA NEGATIVE (Negative); Occult Blood Urine UA 3+ (Negative); Protein Urine UA 2+ (Negative); Specific Gravity Urine UA 1.020 (1.000-1.035); Urobilinogen Urine UA 2.0 E.U./dL (0.2); pH Urine UA 5.5 (4.5-8.0)
[2025-05-15 16:41] LABS: Culture Indicated Urine Specimen Cultured
[2025-05-15] MEDS: LIDOCAINE 2% (GLYDO) 6 ML GEL TOP (19:29)
[2025-05-15 20:17] LABS: Bilirubin Urine UA NEGATIVE (NEGATIVE); Color Urine UA YELLOW; Glucose Urine UA 3+ g/dL (Negative); Ketones Urine UA 1+ (NEGATIVE); Leukocyte Esterase Urine UA NEGATIVE (NEGATIVE); Nitrite Urine UA NEGATIVE (Negative); Occult Blood Urine UA 3+ (Negative); Protein Urine UA 1+ (Negative); Specific Gravity Urine UA 1.020 (1.000-1.035); Urobilinogen Urine UA 1.0 E.U./dL (0.2); pH Urine UA 6.0 (4.5-8.0)
[2025-05-15 20:19] LABS: Appearance Urine UA Cloudy
[2025-05-15 20:33] LABS: Culture Indicated Urine Specimen Cultured
--- NOTE | 2025-05-15 21:11 | ED.MALEGU ---
HPI - Male Genitourinary General Chief complaint: Urogenital-Male Stated complaint: catheter issues / bloodthinners Time Seen by Provider: 05/15/25 17:40 Mode of arrival: Ambulatory History of Present Illness HPI Narrative: Patient is a 79-year-old man who presents today with blood in Izaguirre catheter. Past medical history significant for chronic atrial fibrillation on Eliquis, and hypertension. Izaguirre bag contains urine with but with blood in it. He denies any chest pain, shortness of breath, diaphoresis. No presyncope, lightheadedness. Related Data Home Medications ?Medication ?Instructions ?Recorded ?Confirmed apixaban 5 mg tablet (Eliquis) 5 mg PO BID 01/08/24 01/08/24 diltiazem HCl 120 mg 120 mg PO DAILY 01/08/24 01/08/24 capsule,extended release 24 hr hydrochlorothiazide 25 mg tablet 25 mg PO DAILY 01/08/24 01/08/24 potassium chloride 20 mEq 20 meq PO DAILY 01/08/24 01/08/24 tablet,extended release(part/cryst) terbinafine HCl 250 mg tablet 250 mg PO DAILY 01/08/24 01/08/24 Allergies Allergy/AdvReac Type Severity Reaction Status Date / Time Iodinated Contrast Media Allergy Severe Anaphylaxis Verified 05/15/25 16:13 Review of Systems Review of Systems Narrative: See HPI. Patient History Medical History (Updated 05/15/25 @ 21:11 by Jacque Root MD) AF (paroxysmal atrial fibrillation) Social History Smoking Status: Unknown if ever smoked Smoking Status: Unknown if ever smoked Exam Narrative Exam Narrative: Vitals: Afebrile, all other vitals within normal ranges. Gen: Well developed, well nourished, in no acute distress. Cards: Regular, no murmurs, rubs, or gallops. Pulm: Normal work of breathing. Clear to auscultation bilaterally. Abd: Nondistended, nontender to palpation. Ext: No peripheral edema in bilaterally lower extremity. : Izaguirre in place draining clear yellow urine. Neuro: A&Ox4, cranial nerved grossly intact, moving all 4 extremities spontaneously. Psych: Appropriate. Initial Vital Signs Initial Vital Signs: Vital Signs Temperature 97.2 F L 05/15/25 16:13 Pulse Rate 78 05/15/25 16:13 Respiratory Rate 15 05/15/25 16:13 Blood Pressure 121/77 05/15/25 16:13 Pulse Oximetry 100 05/15/25 16:13 Oxygen Delivery Method Room Air 05/15/25 16:13 Course Orders Ordered: Discontinued Medications Lidocaine HCl (Lidocaine 2% (Glydo) 6 Ml Gel) 6 ml TOP NOW ONE Stop: 05/15/25 19:09 Last Admin: 05/15/25 19:29 Dose: 6 ml Documented By: MELISSA Vital Signs Vital signs: Vital Signs - 8 hr 05/15/25 19:10 05/15/25 19:30 05/15/25 20:00 Pulse Rate 97 H 90 85 Respiratory Rate 18 18 20 Blood Pressure 176/83 H 159/74 H 170/81 H Pulse Oximetry 99 98 97 Oxygen Delivery Method Room Air Room Air Room Air 05/15/25 20:08 05/15/25 20:30 05/15/25 20:30 Pulse Rate 89 90 Respiratory Rate Blood Pressure 160/75 H Pulse Oximetry 97 98 Oxygen Delivery Method 05/15/25 21:00 05/15/25 21:00 Pulse Rate 92 H Respiratory Rate Blood Pressure 180/79 H Pulse Oximetry 98 Oxygen Delivery Method MDM - Male Genitourinary Lab Data Labs: Lab Results 05/15/25 05/15/25 Range/Units 16:26 20:12 Urine Color Brown Yellow Urine Appearance Sl cloudy Cloudy Urine pH 5.5 6.0 (4.5-8.0) Ur Specific [place] 1.020 1.020 (1.000-1.035) Urine Protein 2+ H 1+ H (Negative) Urine Glucose (UA) 3+ H 3+ H (Negative) g/dL Urine Ketones 1+ H 1+ H (NEGATIVE) Urine Occult Blood 3+ H 3+ H (Negative) Urine Nitrate Negative Negative (Negative) Urine Bilirubin Negative Negative (NEGATIVE) Urine Urobilinogen 2.0 H 1.0 (0.2) E.U./dL Ur Leukocyte Esterase Trace H Negative (NEGATIVE) Urine RBC >100/hpf H 30-100/hpf H (0-5/HPF) Urine WBC 5-10/hpf H 30-100/hpf H D (0-5/HPF) Ur Squamous Epith Cells None seen None seen (0-5/HPF) Urine Bacteria Few (2-10) H None seen (None) Urine Mucus 1+ H (Negative) Urine Yeast 1-5/hpf H (None) Ur Culture Indicated? Specimen cultured Specimen cultured Vol Urine Centrifuged 10ml (spun) 10ml (spun) MDM Narrative Medical decision making narrative: Patient with chronic atrial fibrillation on apixaban who izaguirre catheter presents with hematuria. Differential diagnosis: Complication of anticoagulation, trauma, infection, nephrolithiasis, transitional cell carcinoma, BPH, prostatitis, renal cell carcinoma. EMR review: Reviewed prior encounters, limited. Labs: Urinalysis with hematuria and bacteruria, but not evidence of infection (nitrite, leuk esterase negative) Imaging: None EKG: Not performed Consults: None ED course: The patient presented to the ED hypertensive, with all other vital signs within normal limits. His physical exam was benign. By the time I evaluated him, his Izaguirre catheter had already been exchanged. Urinalysis was not consistent with a urinary tract infection, and on my exam the urine in the Izaguirre tubing and collection bag was clear. I informed the patient that intermittent bleeding can occur with catheter use and that blood clots may obstruct drainage. He was counseled to return to the ED immediately if he develops decreased urine output, worsening hematuria, or concern for catheter blockage. He was advised to continue his home medications, including Eliquis, as the benefits currently outweigh the risks. Discharge Plan Departure Patient Disposition: Home Clinical Impression: Complication of Izaguirre catheter Activity Restrictions/Additional Instructions: You were seen in the emergency department for blood in your urine as well as clogged catheter. In the ED: -- In the ER your Izaguirre catheter was exchanged and urinalysis was not consistent with a urinary tract infection. -- There was blood in your urinalysis which may be due to irritation of the prostate and/or bladder Recommendation: -- Follow up with your previously scheduled appointment with urology for voiding trial -- Informed the urologist of blood in your urine for continued monitoring and management -- Return to the ER if you develop any new or or worsening symptoms or any concerns Prescriptions: No Action terbinafine HCl 250 mg tablet 250 mg PO DAILY potassium chloride 20 mEq tablet,ER particles/crystals 20 meq PO DAILY diltiazem HCl 120 mg capsule,extended release 24hr 120 mg PO DAILY hydrochlorothiazide 25 mg tablet 25 mg PO DAILY Eliquis 5 mg tablet 5 mg PO BID Referrals: Krysta Cooper MD [Primary Care Provider, Vascular Surgery] Stand Alone Forms: Patient Portal/API
== END 2025-05-15 21:29 | disposition home or self-care (01) ==
PROVIDERS: Emergency Medicine; Emergency Provider Student in an Organized Health Care Education/Training Program; PCP Surgery
DX: T83.098A Other mechanical complication of other urinary catheter, initial encounter (principal); R31.9 Hematuria, unspecified
CPT/HCPCS: 51798; 81001; 87077; 87086; 87186; 99283